=== PATIENT | male | born 1980 | race African-American/Black ===

== ENCOUNTER 2019-04-01 08:33 | Inpatient (IN) | payer MEDICAID ==
[~2019-04-01] VITALS: Ht 175.3 cm; Wt 70.8 kg
[2019-04-01] MEDS ORDERED: SODIUM CHLORIDE 0.9% 1,000 ML IV ONE (08:48)
[2019-04-01] MEDS ORDERED: KETOROLAC 30MG/ML VIAL IV STA (08:48)
[2019-04-01] MEDS ORDERED: CLINDAMYCIN 600 MG in DEXTROSE 5% WATER 50 ML IV ONE (09:00)
[2019-04-01 09:28] LABS: BASOPHILS % 0.4 % (0.0-2.0); EOSINOPHILS % 0.7 % (0.0-5.0); HEMATOCRIT. 43.7 % (42.0-52.0); HEMOGLOBIN. 14.9 g/dL (14.0-18.0); LYMPHOCYTES % 13.4 % (20.0-50.0); MEAN CORPUSCULAR HEMOGLOBIN 30.6 pg (28.0-32.0); MEAN CORPUSCULAR VOLUME 90.1 fL (80.0-94.0); MEAN PLATELET VOLUME 9.9 fl (7.4-10.4); MONOCYTES % 11.5 % (2.0-8.0); PLATELET 194 x1000/uL (130-400); RED BLOOD CELL COUNT 4.85 mill/uL (4.7-6.1); RED CELL DISTRIBUTION WIDTH 15.2 % (11.6-14.6)
[2019-04-01] MEDS ORDERED: CLINDAMYCIN 600MG PREMIX 50 ML IV NR (09:30)
[2019-04-01 09:36] LABS: CHLORIDE 102 mEq/L (98-107)
[2019-04-01] MEDS ORDERED: KETOROLAC 30MG/ML VIAL IV PRN (12:15)
[2019-04-01] MEDS ORDERED: ONDANSETRON HCL 4MG/2ML INJ IV PRN (12:15)
[2019-04-01] MEDS ORDERED: PIPERACILLIN/TAZOBACTAM 3.375 G in DEXT 5% WATER 100 ML IV SCH (12:15)
[2019-04-01 14:00] VITALS: BP 112/79
[2019-04-01] MEDS ORDERED: EMTR1TAB11 PO (14:22)
[2019-04-01 14:32] VITALS: BP 112/79
[2019-04-01] MEDS: VANCOMYCIN 1 G PREMIX 200 ML IV SCH ×2 (17:18→23:45)
[2019-04-01 20:00] VITALS: BP 108/70
[2019-04-02] VITALS: BP 118/78
[2019-04-02] MEDS: HYDROCODONE/ACETAMINOPHEN 5/325MG TABLET PO PRN (02:43)
[2019-04-02 04:00] VITALS: BP 111/67
[2019-04-02] MEDS: ACETAMINOPHEN 325MG TABLET PO PRN ×2 (04:56→23:52)
[2019-04-02 06:49] LABS: CHLORIDE 105 mEq/L (98-107)
[2019-04-02 06:50] LABS: BASOPHILS % 0.3 % (0.0-2.0); EOSINOPHILS % 1.5 % (0.0-5.0); HEMATOCRIT. 38.7 % (42.0-52.0); HEMOGLOBIN. 12.9 g/dL (14.0-18.0); LYMPHOCYTES % 19.5 % (20.0-50.0); MEAN CORPUSCULAR HEMOGLOBIN 30.1 pg (28.0-32.0); MEAN CORPUSCULAR VOLUME 90.1 fL (80.0-94.0); MEAN PLATELET VOLUME 9.9 fl (7.4-10.4); MONOCYTES % 12.6 % (2.0-8.0); NEUTROPHILS % 66.1 % (40.0-76.0); PLATELET 176 x1000/uL (130-400); RED BLOOD CELL COUNT 4.29 mill/uL (4.7-6.1); RED CELL DISTRIBUTION WIDTH 14.9 % (11.6-14.6)
[2019-04-02 08:00] VITALS: BP 102/71
[2019-04-02] MEDS: VANCOMYCIN 1 G PREMIX 200 ML IV SCH ×3 (08:50→23:45)
[2019-04-02 12:00] VITALS: BP 107/74
[2019-04-02] MEDS: DIPHENHYDRAMINE 12.5MG/5ML UDC PO PRN (12:27)
[2019-04-02 16:00] VITALS: BP 127/90
[2019-04-02 20:00] VITALS: BP 118/86
[2019-04-03] VITALS: BP 121/91
[2019-04-03 04:00] VITALS: BP 123/78
[2019-04-03] MEDS: VANCOMYCIN 1 G PREMIX 200 ML IV SCH ×2 (09:12→17:50)
[2019-04-03 11:54] VITALS: BP 150/95
[2019-04-03 16:00] VITALS: BP 113/73
[2019-04-03] MEDS ORDERED: LIDOCAINE HCL/EPINEPHRINE 1%-EPI 1:100,000 20 ML VIAL INFIL NR (16:00)
[2019-04-03] MEDS: HYDROCODONE/ACETAMINOPHEN 5/325MG TABLET PO PRN (17:52)
[2019-04-03 20:00] VITALS: BP 131/84
[2019-04-04] VITALS: BP 111/74
[2019-04-04] MEDS: VANCOMYCIN 1 G PREMIX 200 ML IV SCH ×2 (02:30→08:00)
[2019-04-04 04:00] VITALS: BP 123/74
[2019-04-04] MEDS: DIPHENHYDRAMINE 12.5MG/5ML UDC PO PRN (04:18)
[2019-04-04 06:09] LABS: HIV SCREEN 4G Non Reactive (Non Reactive)
[2019-04-04 12:00] VITALS: BP 114/81
[2019-04-04] MEDS ORDERED: CLIN300C11 MT (14:40)
[2019-04-04 15:18] VITALS: BP 114/81
== END 2019-04-04 16:15 | disposition home or self-care (01) | DRG 710 ==
LOC: ER 08:33 → EDBEDREQ 08:54 → 6EST 11:32 → EDBEDREQTM 11:35 → EDBEDREQ 11:35 → ENRESERV 12:39
PROVIDERS: ADMIT Internal Medicine; ATTEND Internal Medicine
PROC: 0KBN0ZZ Excision of Right Hip Muscle, Open Approach (ICD-10-PCS; principal; 2019-04-03)
DX: A41.9 Sepsis, unspecified organism (principal); E87.1 Hypo-osmolality and hyponatremia; L03.115 Cellulitis of right lower limb; L02.419 Cutaneous abscess of limb, unspecified; Z88.0 Allergy status to penicillin
CPT/HCPCS: 36415; 73700; 80048; 80053; 80202; 85025; 87070; 87075; 87077; 87389; 96365; 99285; J1885; J3370; J3490; J7030; J7060; Q0163